=== PATIENT | male | born 1955 | race Caucasian/White ===

== ENCOUNTER 2020-09-24 09:02 | Outpatient (REF) | payer OTHER, SELFPAY ==
[2020-09-24 12:08] LABS: Alanine Aminotransferase 47 U/L (0-40); Albumin Level 4.6 g/dL (3.5-5.0); Alkaline Phosphatase 38 U/L (39-117); Anion Gap 18 (12-20); Aspartate Amino Transferase 44 U/L (5-37); Blood Urea Nitrogen 16 mg/dL (9-16); Calcium 9.6 mg/dL (8.4-10.2); Carbon Dioxide 27 mmol/L (22-29); Chloride 88 mmol/L (96-108); Cholesterol 181 mg/dL; Estimated Glomerular Filt Rate > 60; Glucose Fasting 191 mg/dL (60-99); HDL Cholesterol 48 mg/dL; LDL Cholesterol Calculated 93 mg/dl; Potassium 3.9 mmol/L (3.3-5.1); Sodium 129 mmol/L (135-145); Total Protein 7.2 g/dL (6.5-8.0); Triglycerides 204 mg/dL
[2020-09-24 12:59] LABS: Estimated Average Glucose 177 mg/dL; Hemoglobin A1C 227.3193 umol/L; Hemoglobin A1c % 7.8 %
== END 2020-09-24 09:03 | disposition home or self-care (01) ==
LOC: HO.HMGCLDS 09:02
PROVIDERS: PCP Nurse Practitioner Family; Visit Provider Nurse Practitioner Family
DX: E11.9 Type 2 diabetes mellitus without complications (principal)
CPT/HCPCS: 36415; 80053; 80061; 83036

== ENCOUNTER 2022-09-01 12:48 | Outpatient (REF) | payer OTHER, SELFPAY ==
[2022-09-01 14:05] LABS: MANUAL DIFF FLAG NO
[2022-09-01 14:11] LABS: Basophils Percent Auto 0.6 % (0-2); Eosinophils Absolute Auto 0.1 X10*3/uL (0.0-0.4); Eosinophils Percent Auto 1.1 % (0-4); Hematocrit 42.9 % (42.0-52.0); Hemoglobin 14.7 g/dl (14.0-18.0); Imm Gran Abs Auto 0.06 X10*3/uL (0.00-0.03); Imm Gran Pct Auto 0.9 % (0.0-0.4); Lymphocytes Absolute Auto 1.2 X10*3/uL (1.2-4.9); Lymphocytes Percent Auto 17.3 % (20-40); Mean Corpuscular HGB Conc 34.3 g/dl (31.0-36.0); Mean Corpuscular Hemoglobin 31.5 pg (27.0-33.0); Mean Corpuscular Volume 92.1 fL (80.0-98.0); Mean Platelet Volume 10.3 fL (9.4-12.4); Monocytes Absolute Auto 0.8 X10*3/uL (0.1-1.2); Monocytes Percent Auto 12.2 % (2-11); Neutrophils Absolute Auto 4.5 x10*3/uL (2.0-8.3); Neutrophils Percent Auto 67.9 % (45-73); Platelet Count 233 X10*3/uL (160-400); Red Blood Count 4.66 X10*6/uL (4.60-5.80); Red Cell Distribution Width 11.9 % (11.0-16.0); White Blood Count 6.6 X10*3/uL (4.8-10.8)
[2022-09-01 14:39] LABS: Alanine Aminotransferase 47 U/L (0-40); Albumin Level 4.5 g/dL (3.5-5.0); Alkaline Phosphatase 58 U/L (39-117); Anion Gap 18 (12-20); Aspartate Amino Transferase 70 U/L (5-37); Bilirubin Total 1.2 mg/dL (0.0-1.0); Blood Urea Nitrogen 17 mg/dL (9-16); Calcium 10.3 mg/dL (8.4-10.2); Carbon Dioxide 27 mmol/L (22-29); Chloride 101 mmol/L (96-108); Cholesterol 162 mg/dL; Estimated Glomerular Filt Rate > 60; Glucose Fasting 249 mg/dL (60-99); HDL Cholesterol 53 mg/dL; LDL Cholesterol Calculated 72 mg/dl; Potassium 4.9 mmol/L (3.3-5.1); Sodium 141 mmol/L (135-145); Total Protein 7.6 g/dL (6.5-8.0); Triglycerides 186 mg/dL
[2022-09-01 14:55] LABS: TSH reflex Free T4 1.17 uIU/mL (0.32-4.0)
== END 2022-09-01 12:49 | disposition home or self-care (01) ==
LOC: HO.HMGCLDS 12:48
PROVIDERS: PCP Nurse Practitioner Family; Visit Provider Nurse Practitioner Family
DX: E11.9 Type 2 diabetes mellitus without complications (principal)
CPT/HCPCS: 36415; 80053; 80061; 84443; 85025

== ENCOUNTER 2023-03-02 08:48 | Outpatient (REF) | payer OTHER, SELFPAY ==
[2023-03-02 11:32] LABS: MANUAL DIFF FLAG NO
[2023-03-02 11:34] LABS: Appearance Urine Clear; Color Urine Yellow; Glucose Urine UA Negative (Negative); Leukocyte Esterase Urine Negative (Negative); Nitrite Urine Negative (Negative); PH 5.5 (5.0-9.0); Specific Gravity - Urine 1.015 (1.005-1.025); UMIC TRIGGER UACC YES; Urine Blood Negative (Negative); Urine Ketones Trace mg/dL (Negative); Urine Protein 30 (1+) mg/dL (Neg-Trace)
[2023-03-02 11:37] LABS: Bacteria Urine None Seen (None Seen); Hyaline Casts Urine 0-2 /LPF (0-2); RBC Urine 0-2 /HPF (0-2); Squamous Epithelial Cell Urine 0-2 /HPF (0-2); WBC Urine 0-5 /HPF (0-5)
[2023-03-02 11:47] LABS: Basophils Absolute Auto 0.1 X10*3/uL (0.0-0.2); Basophils Percent Auto 0.8 % (0-2); Eosinophils Absolute Auto 0.1 X10*3/uL (0.0-0.4); Eosinophils Percent Auto 2.3 % (0-4); Hemoglobin 14.2 g/dl (14.0-18.0); Imm Gran Abs Auto 0.03 X10*3/uL (0.00-0.03); Imm Gran Pct Auto 0.5 % (0.0-0.4); Lymphocytes Absolute Auto 1.2 X10*3/uL (1.2-4.9); Lymphocytes Percent Auto 19.9 % (20-40); Mean Corpuscular HGB Conc 33.8 g/dl (31.0-36.0); Mean Corpuscular Hemoglobin 31.5 pg (27.0-33.0); Mean Corpuscular Volume 93.1 fL (80.0-98.0); Mean Platelet Volume 11.1 fL (9.4-12.4); Monocytes Absolute Auto 0.7 X10*3/uL (0.1-1.2); Monocytes Percent Auto 11.8 % (2-11); Neutrophils Absolute Auto 3.9 x10*3/uL (2.0-8.3); Neutrophils Percent Auto 64.7 % (45-73); Platelet Count 155 X10*3/uL (160-400); Red Blood Count 4.51 X10*6/uL (4.60-5.80)
[2023-03-02 12:15] LABS: Estimated Average Glucose 137 mg/dL; Hemoglobin A1c % 6.4 %
[2023-03-02 12:18] LABS: Creatinine Urine 105.81 mg/dL; Microalbum/Creatinine Ratio Ur 123.8 ug/mg cr
[2023-03-02 12:34] LABS: Alanine Aminotransferase 25 U/L (0-40); Albumin Level 4.6 g/dL (3.5-5.0); Alkaline Phosphatase 35 U/L (39-117); Anion Gap 15 (12-20); Aspartate Amino Transferase 26 U/L (5-37); Bilirubin Total 1.1 mg/dL (0.0-1.0); Blood Urea Nitrogen 22 mg/dL (9-16); Calcium 10.9 mg/dL (8.4-10.2); Carbon Dioxide 23 mmol/L (22-29); Chloride 106 mmol/L (96-108); Cholesterol 148 mg/dL; Estimated Glomerular Filt Rate > 60; Glucose Fasting 164 mg/dL (60-99); HDL Cholesterol 46 mg/dL; Iron 139 mcg/dL (45-160); LDL Cholesterol Calculated 70 mg/dl; Percent Iron Saturation 41 % (15-50); Potassium 4.2 mmol/L (3.3-5.1); Sodium 140 mmol/L (135-145); Total Iron Binding Capacity 336 mcg/dL (228-428); Total Protein 7.7 g/dL (6.5-8.0); Triglycerides 160 mg/dL; Unsaturated Iron Binding 197 ug/dL
[2023-03-02 12:39] LABS: Ferritin 312 ng/mL (20-250); TSH reflex Free T4 1.38 uIU/mL (0.32-4.0)
[2023-03-02 12:41] LABS: Prostate Specific Antigen Scr 0.18 ng/mL (<0.05-4.0)
== END 2023-03-02 08:49 | disposition home or self-care (01) ==
LOC: HO.HMGCLDS 08:48
PROVIDERS: PCP Nurse Practitioner Family; Visit Provider Nurse Practitioner Family
DX: Z12.5 Encounter for screening for malignant neoplasm of prostate (principal); E11.9 Type 2 diabetes mellitus without complications; R79.89 Other specified abnormal findings of blood chemistry
CPT/HCPCS: 36415; 80053; 80061; 81001; 82043; 82728; 83036; 83540; 84153; 84443; 85025

== ENCOUNTER 2023-03-06 15:42 | Outpatient (AMB) | payer OTHER, SELFPAY ==
[2023-03-06 15:48] VITALS: BP 120/78; PULSE 80; O2SAT 97; BMI 28.2
--- NOTE | 2023-03-06 15:48 | MHC.PC.OV ---
Vital Signs 03/06/23 15:48 Height 5 ft 11 in Weight 202 lb 4 oz BMI 28.2 BP 120/78 Blood Pressure Location Rt brachial Position Sitting Pulse 80 Pulse Source Pulse Oximeter Pulse Oximetry (%) 97 Oxygen Delivery Method Room Air Intake Visit Reasons: 3 Month follow up Allergies No Known Allergies Allergy (Unverified 03/06/23 17:09) Medication List - Last Reconciled 03/06/23 by RITESH Jose amlodipine 10 mg PO DAILY aspirin (Edgar Low Dose Aspirin) 81 mg PO DAILY atorvastatin 40 mg PO DAILY clonidine HCl 0.2 mg PO BEDTIME glipizide ER 5 mg PO DAILY hydralazine 25 mg PO BID hydrochlorothiazide 25 mg PO DAILY lisinopril 40 mg PO DAILY metformin 1,000 mg PO BID propranolol ER 120 mg PO DAILY Tobacco use date assessed: 03/06/23 Fall risk assessment: No Falls in past year Last assessed Fall Risk: 03/06/23 Dental Screening Dental Screen Date: 03/06/23 Did you have a dental visit in the last 12 months?: Yes Did you have a dental problem in the last 6 months where you did not have access to dental care?: No Was dental information given to patient?: Patient has dentist HPI 3 Month follow up HPI Details Pt is a diabetic, on an ANITHA and a statin. Last A1C was 6.4, microalbumin is up to date. Denies polyuria, polydipsia, and neuropathy. Pt denies any signs and symptoms of hypoglycemia and does know how to correct it. Eye exam is up to date. Pt's calcium was elevated, parathyroid hormone and ionized calcium have been ordered. Refuses colon screens. Elevated ferritin, though iron WNL: donates blood, hasn't in a while, plan to do so in the near future. NOTE: i drink wine everyday . [facility] Medical History Colonoscopy refused Social History Housing: House Patient Tobacco Use Status: Former Tobacco user Quit Date: quit 25 years ago e-Cigarette/Vaping Use: Never Used Second Hand Smoke Exposure: No Current occupational status: employed Current occupation: [id number] Current occupational exposures/hazards: No Cognitive needs: No Hearing needs: No Vision needs: No Questionnaire Thrive Questionnaire Date Thrive assessed: 08/23/22 ROBYN-7 AMB Questionnaire ROBYN-7 Date ROBYN - 7 assessed: 08/23/22 Source: Developed by Drs. Joesph Gray, Laxmi Young, Teddy Reyes and colleagues, with an educational ning from [email or web address]. Review of Systems Const Reports as per HPI Physical exam (Primary Care) Vital Signs: Last Vital Signs Pulse 80 03/06/23 15:48 BP 120/78 03/06/23 15:48 Pulse Ox 97 03/06/23 15:48 Oxygen Delivery Method Room Air 03/06/23 15:48 BMI result Body Mass Index 28.2 Tobacco/Smoking Status: Tobacco use Status Tobacco use date assessed 03/06/23 03/06/23 15:56 Patient Tobacco Use Status Former Tobacco user 03/06/23 15:56 e-Cigarette/Vaping Use Never Used 03/06/23 15:56 Thrive Assessment: Date of Thrive Assessment Date Thrive assessed 08/23/22 03/06/23 15:56 Const General: cooperative Orientation/consciousness: patient oriented x3 Resp Effort & Inspection: normal respiratory effort Auscultation: clear to auscultation bilaterally Cardio Rate: regular rate Rhythm: regular rhythm Heart sounds: S1 normal heart sound present, S2 normal heart sound present and Murmur heart sound present systolic Neuro General: patient oriented x3 Extrem Other: bilat feet: + sensation with use of monofilament, feet intact Psych Appearance: grossly normal Mental Status: mental status grossly normal Speech and movement: Normal speech and movement present Affect: normal affect Attitude: cooperative Thought process: Normal thought process present Thought content: Normal thought content present Insight: Good insight present (Psych) Judgement: Good judgement present (Psych) Assessment and Plan Assessment & Plan (1) Elevated ferritin: Code(s): R79.89 - Other specified abnormal findings of blood chemistry (2) Serum calcium elevated: Code(s): E83.52 - Hypercalcemia (3) Diabetes mellitus: Code(s): E11.9 - Type 2 diabetes mellitus without complications Plan The patient agreed to the use of a medical insurance claims specialist for this encounter. Scribed for RITESH Espinoza by Mellisa Moctezuma medical insurance claims specialist, on 03/06/2023 at 16:00 EST. Coding Level of Care Code Est Pt Level 3 (69358) Diagnoses Elevated ferritin R79.89 Serum calcium elevated E83.52 Diabetes mellitus E11.9
== END 2023-03-06 16:28 | disposition home or self-care (01) ==
PROVIDERS: Visit Provider Nurse Practitioner Family
DX: R79.89 Other specified abnormal findings of blood chemistry (principal); E83.52 Hypercalcemia; E11.9 Type 2 diabetes mellitus without complications
CPT/HCPCS: 99213

== ENCOUNTER 2023-09-25 09:04 | Outpatient (REF) | payer BC, SELFPAY ==
[2023-09-25 11:38] LABS: Appearance Urine Cloudy; Color Urine Dark Yellow; Glucose Urine UA 100 mg/dL (Negative); Leukocyte Esterase Urine Trace (Negative); Nitrite Urine Negative (Negative); PH 5.5 (5.0-9.0); Specific Gravity - Urine 1.025 (1.005-1.025); UMIC TRIGGER UACC YES; Urine Blood Negative (Negative); Urine Ketones Trace mg/dL (Negative); Urine Protein 300 (3+) mg/dL (Neg-Trace)
[2023-09-25 11:40] LABS: MANUAL DIFF FLAG NO
[2023-09-25 11:54] LABS: Basophils Absolute Auto 0.1 X10*3/uL (0.0-0.2); Basophils Percent Auto 0.6 % (0-2); Eosinophils Absolute Auto 0.2 X10*3/uL (0.0-0.4); Eosinophils Percent Auto 1.9 % (0-4); Hematocrit 46.3 % (42.0-52.0); Hemoglobin 15.7 g/dl (14.0-18.0); Imm Gran Abs Auto 0.04 X10*3/uL (0.00-0.03); Imm Gran Pct Auto 0.5 % (0.0-0.4); Lymphocytes Absolute Auto 1.3 X10*3/uL (1.2-4.9); Lymphocytes Percent Auto 15.9 % (20-40); Mean Corpuscular HGB Conc 33.9 g/dl (31.0-36.0); Mean Corpuscular Hemoglobin 30.4 pg (27.0-33.0); Mean Corpuscular Volume 89.6 fL (80.0-98.0); Mean Platelet Volume 10.4 fL (9.4-12.4); Monocytes Percent Auto 11.7 % (2-11); Neutrophils Absolute Auto 5.7 x10*3/uL (2.0-8.3); Neutrophils Percent Auto 69.4 % (45-73); Platelet Count 205 X10*3/uL (160-400); Red Blood Count 5.17 X10*6/uL (4.60-5.80); Red Cell Distribution Width 13.2 % (11.0-16.0); White Blood Count 8.2 X10*3/uL (4.8-10.8)
[2023-09-25 12:05] LABS: Bacteria Urine None Seen (None Seen); Estimated Average Glucose 131 mg/dL; Hemoglobin A1c % 6.2 % (<6.0); Hyaline Casts Urine >20 /LPF (0-2); RBC Urine 0-2 /HPF (0-2); UACC Culture Trigger YES
[2023-09-25 12:26] LABS: Alanine Aminotransferase 20 U/L (0-40); Albumin Level 4.8 g/dL (3.5-5.0); Alkaline Phosphatase 43 U/L (39-117); Anion Gap 15 (12-20); Aspartate Amino Transferase 21 U/L (5-37); Bilirubin Total 1.2 mg/dL (0.0-1.0); Blood Urea Nitrogen 21 mg/dL (9-16); Calcium 10.6 mg/dL (8.4-10.2); Carbon Dioxide 24 mmol/L (22-29); Chloride 103 mmol/L (96-108); Cholesterol 194 mg/dL (<200); Estimated Glomerular Filt Rate > 60; Glucose Fasting 221 mg/dL (60-99); HDL Cholesterol 48 mg/dL (>40); LDL Cholesterol Calculated 111 mg/dL (<100); Potassium 4.1 mmol/L (3.3-5.1); Sodium 138 mmol/L (135-145); TSH reflex Free T4 2.32 uIU/mL (0.32-4.0); Total Protein 8.3 g/dL (6.5-8.0); Triglycerides 177 mg/dL (<150)
[2023-09-25 13:12] LABS: Microalbum/Creatinine Ratio Ur 633.4 ug/mg cr (<30); Microalbumin Urine > 2000.0 mg/L
== END 2023-09-25 09:05 | disposition home or self-care (01) ==
LOC: HO.HMGCLDS 09:04
PROVIDERS: PCP Nurse Practitioner Family; Visit Provider Nurse Practitioner Family
DX: Z12.5 Encounter for screening for malignant neoplasm of prostate (principal); I10 Essential (primary) hypertension; E11.9 Type 2 diabetes mellitus without complications; R82.90 Unspecified abnormal findings in urine
CPT/HCPCS: 36415; 80053; 80061; 81001; 82043; 82570; 83036; 84153; 84443; 85025; 87086

== ENCOUNTER 2023-10-12 13:38 | Outpatient (AMB) | payer BC, SELFPAY ==
[2023-10-12 13:50] VITALS: BP 124/70; PULSE 69; O2SAT 96; BMI 27.9
--- NOTE | 2023-10-12 13:50 | HO.NEPHOV_ITS ---
HPI HPI Comments History of Present Illness Details I had the privilege of seeing Prudence in consultation for proteinuria. He is diabetic and hypertensive. His blood pressure control was suboptimal needing increase in dose and number of medications. Recently he has been started on clonidine and ever since his blood pressure has been at goal. His diabetes was not under control with a hemoglobin A1c of 9.2 which he worked hard on and is currently under 7. He denies retinopathy, neuropathy but has nephropathy. He does not have any coronary artery disease, congestive heart failure, CVA, renal artery stenosis, peripheral arterial disease, skin rashes, carotid stenosis, photosensitivity, joint swellings, epistaxis, hematuria, renal stones. His proteinuria has been getting worse. He denies taking excessive nonsteroidal anti-inflammatories. He claims to be compliant with his medications. PFSH Medical History Colonoscopy refused Social History Housing: House Patient Tobacco Use Status: Former Tobacco user Quit Date: quit 25 years ago e-Cigarette/Vaping Use: Never Used Second Hand Smoke Exposure: No Current occupational status: employed Current occupation: [id number] Current occupational exposures/hazards: No Cognitive needs: No Hearing needs: No Vision needs: No Vital Signs 10/12/23 13:50 Height 5 ft 11 in Weight 200 lb 2 oz BMI 27.9 BP 124/70 Blood Pressure Location Lt brachial Position Sitting Pulse 69 Pulse Source Pulse Oximeter Pulse Oximetry (%) 96 Oxygen Delivery Method Room Air Physical Exam Vital Signs: Last Vital Signs Pulse 69 10/12/23 13:50 BP 124/70 10/12/23 13:50 Pulse Ox 96 10/12/23 13:50 Oxygen Delivery Method Room Air 10/12/23 13:50 BMI result Body Mass Index 27.9 Const General: comfortable and no acute distress Orientation/consciousness: patient oriented x3 HEENT Head: Yes normocephalic Mouth: Normal oral and palatal mucosa present Eyes EOM: EOMs intact bilaterally Neck Neck: Yes supple Resp Auscultation: clear to auscultation bilaterally Cardio Jugular venous distension: no JVD Rate: regular rate GI Palpation (GI): Soft to palpation Auscultation: normal bowel sounds General: Yes no CVA tenderness Back/Spine/Pelvis Back: no CVA tenderness Skin General skin exam: no rashes or lesions noted Neuro General: patient oriented x3 and moves all extremities Extrem General: Yes no pedal edema Assessment & Plan Assessment & Plan (1) Proteinuria: Code(s): R80.9 - Proteinuria, unspecified Qualifiers: Proteinuria type: other Qualified Code(s): R80.8 - Other proteinuria (2) HTN (hypertension): Code(s): I10 - Essential (primary) hypertension Qualifiers: Hypertension type: primary hypertension Qualified Code(s): I10 - Essential (primary) hypertension Plan 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 His blood pressure is currently at goal. His hemoglobin A1c is under 7. He does not have any retinopathy or neuropathy. I ordered further workup including imaging studies. I also ordered 24 hour urine collection for protein. He has no family history of Fabry's disease. He has no coronary artery disease or symptoms suggestive of small fiber neuropathy either. He most likely will need renal biopsy. He possibly is a candidate for Jardiance or Farxiga. He should avoid nonsteroidal anti-inflammatories and maintain good hydration. I did not make any medication changes today. More than 50% of time spent discuss ing all these. Answered all his questions. Follow-up appointment given. Orders: Orders Hepatitis B Core Antibody Today I10 - Essential (primary) hypertension, R80.9 - Proteinuria, unspecified Hepatitis B Surface Antigen Today I10 - Essential (primary) hypertension, R80.9 - Proteinuria, unspecified RACIEL Reflex Titer and Pattern Today I10 - Essential (primary) hypertension, R80.9 - Proteinuria, unspecified Anti DNA DS Antibody Today I10 - Essential (primary) hypertension, R80.9 - Proteinuria, unspecified Myeloperoxidase Antibody Today I10 - Essential (primary) hypertension, R80.9 - Proteinuria, unspecified Anti Glomerular Basement Memb Today I10 - Essential (primary) hypertension, R80.9 - Proteinuria, unspecified Protein Electrophoresis, Serum Today I10 - Essential (primary) hypertension, R80.9 - Proteinuria, unspecified Complement C3 Today I10 - Essential (primary) hypertension, R80.9 - Proteinuria, unspecified Phospholipase A2 Receptor Pnl Today I10 - Essential (primary) hypertension, R80.9 - Proteinuria, unspecified Protein, 24 Hr Urine Group Today I10 - Essential (primary) hypertension, R80.9 - Proteinuria, unspecified Prothrombin Time INR Today I10 - Essential (primary) hypertension, R80.9 - Proteinuria, unspecified Proteinase 3 PR3 Antibodies Today I10 - Essential (primary) hypertension, R80.9 - Proteinuria, unspecified Complement C4 Today I10 - Essential (primary) hypertension, R80.9 - Proteinuria, unspecified Complete Blood Count Auto Diff Today I10 - Essential (primary) hypertension, R80.9 - Proteinuria, unspecified US renal BI Today I10 - Essential (primary) hypertension, R80.9 - Proteinuria, unspecified Coding Level of Care Code New Pt Level 4 (09330) Diagnoses Other proteinuria R80.8 Proteinuria type: other Primary hypertension I10 Hypertension type: primary hypertension Results Reviewed Nephrology Results: Hgb 15.7 g/dl (14.0-18.0) 09/25/23 WBC 8.2 X10*3/uL (4.8-10.8) 09/25/23 Plt Count 205 X10*3/uL (160-400) 09/25/23 Sodium 138 mmol/L (135-145) 09/25/23 Potassium 4.1 mmol/L (3.3-5.1) 09/25/23 Chloride 103 mmol/L (96-108) 09/25/23 Carbon Dioxide 24 mmol/L (22-29) 09/25/23 BUN 21 mg/dL (9-16) H 09/25/23 Creatinine 0.86 mg/dL (0.5-1.4) 09/25/23 Calcium 10.6 mg/dL (8.4-10.2) H 09/25/23 Urine Protein 300 (3+) mg/dL (Neg-Trace) H 09/25/23 Urine Creatinine 315.74 mg/dL 09/25/23
== END 2023-10-12 14:17 | disposition home or self-care (01) ==
PROVIDERS: PCP Nurse Practitioner Family; Visit Provider Internal Medicine Nephrology
DX: R80.8 Other proteinuria (principal); I10 Essential (primary) hypertension
CPT/HCPCS: 99204

== ENCOUNTER → 2023-10-12 13:38 | Outpatient (BNVA) | payer BC, SELFPAY | PROVIDERS: PCP Nurse Practitioner Family; Visit Provider Internal Medicine Nephrology ==

== ENCOUNTER 2023-11-09 10:13 | Outpatient (REF) | payer BC, SELFPAY ==
[2023-11-09 13:19] LABS: MANUAL DIFF FLAG NO
[2023-11-09 13:45] LABS: Basophils Percent Auto 0.6 % (0-2); Eosinophils Absolute Auto 0.1 X10*3/uL (0.0-0.4); Eosinophils Percent Auto 1.8 % (0-4); Hematocrit 43.5 % (42.0-52.0); Hemoglobin 14.7 g/dl (14.0-18.0); Imm Gran Abs Auto 0.02 X10*3/uL (0.00-0.03); Imm Gran Pct Auto 0.3 % (0.0-0.4); Lymphocytes Absolute Auto 0.8 X10*3/uL (1.2-4.9); Lymphocytes Percent Auto 12.1 % (20-40); Mean Corpuscular HGB Conc 33.8 g/dl (31.0-36.0); Mean Corpuscular Volume 91.8 fL (80.0-98.0); Mean Platelet Volume 10.4 fL (9.4-12.4); Monocytes Absolute Auto 0.6 X10*3/uL (0.1-1.2); Monocytes Percent Auto 8.5 % (2-11); Neutrophils Absolute Auto 5.1 x10*3/uL (2.0-8.3); Neutrophils Percent Auto 76.7 % (45-73); Platelet Count 177 X10*3/uL (160-400); Red Blood Count 4.74 X10*6/uL (4.60-5.80); Red Cell Distribution Width 13.2 % (11.0-16.0); White Blood Count 6.7 X10*3/uL (4.8-10.8)
[2023-11-09 13:50] LABS: INTERNATIONAL NORM RATIO 0.9 (0.9-1.1); Prothrombin Time 11.4 SEC (11.1-13.3)
[2023-11-10 04:27] LABS: HBc Num1 0.06 S/CO (0.00-0.79); Hepatitis B Core Antibody Nonreactive (Nonreactive); Hepatitis B Surface Antigen Negative (Negative)
[2023-11-13 08:23] LABS: Anti DNA DS Antibody <1 IU/mL; Anti Glomerular Basement Memb <1.0 AI; Myeloperoxidase Antibody <1.0 AI; Proteinase 3 PR3 Antibodies <1.0 AI
[2023-11-13 12:53] LABS: Anti Nuclear Antibody Screen NEGATIVE (NEGATIVE)
[2023-11-13 16:49] LABS: Prot Elec - Albumin 4.7 g/dL (3.8-4.8); Prot Elec - Alpha1 0.3 g/dL (0.2-0.3); Prot Elec - Alpha2 0.8 g/dL (0.5-0.9); Prot Elec - Beta 1 0.6 g/dL (0.4-0.6); Prot Elec - Beta 2 0.5 g/dL (0.2-0.5); Prot Elec - Gamma 0.9 g/dL (0.8-1.7); Prot Elec - Total Protein 7.7 g/dL (6.1-8.1)
[2023-11-14 11:59] LABS: Complement C3 148 mg/dL (82-185)
[2023-11-20 17:08] LABS: Phospholipase A2 IgG ELISA <4 RU/mL; Phospholipase A2 IgG IFA NEGATIVE (NEGATIVE)
== END 2023-11-09 10:14 | disposition home or self-care (01) ==
LOC: HO.HMGCLDS 10:13
PROVIDERS: PCP Nurse Practitioner Family; Visit Provider Internal Medicine Nephrology
DX: I10 Essential (primary) hypertension (principal); R80.8 Other proteinuria
CPT/HCPCS: 36415; 83520; 84165; 85025; 85610; 86021; 86038; 86160; 86225; 86255; 86704; 87340

== ENCOUNTER 2023-11-09 14:01 | Outpatient (AMB) | payer BC, SELFPAY ==
--- NOTE | 2023-11-09 14:05 | HO.NEPHOV_ITS ---
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 He is diabetic and hypertensive. His blood pressure control was suboptimal needing increase in dose and number of medications. Recently he has been started on clonidine and ever since his blood pressure has been at goal. His diabetes was not under control with a hemoglobin A1c of 9.2 which he worked hard on and is currently under 7. He denies retinopathy, neuropathy but has nephropathy. He does not have any coronary artery disease, congestive heart failure, CVA, renal artery stenosis, peripheral arterial disease, skin rashes, carotid stenosis, photosensitivity, joint swellings, epistaxis, hematuria, renal stones. His proteinuria had been getting worse. He denies taking excessive nonsteroidal anti-inflammatories. He claims to be compliant with his medications. PFSH Medical History Colonoscopy refused Social History Housing: House Patient Tobacco Use Status: Former Tobacco user Quit Date: quit 25 years ago e-Cigarette/Vaping Use: Never Used Second Hand Smoke Exposure: No Current occupational status: employed Current occupation: [id number] Current occupational exposures/hazards: No Cognitive needs: No Hearing needs: No Vision needs: No Physical Exam Vital Signs: Last Vital Signs Pulse 66 11/09/23 14:06 BP 130/74 11/09/23 14:06 Pulse Ox 98 11/09/23 14:06 Oxygen Delivery Method Room Air 11/09/23 14:06 BMI result Body Mass Index 27.8 Const General: comfortable and no acute distress Orientation/consciousness: patient oriented x3 HEENT Head: Yes normocephalic Mouth: Normal oral and palatal mucosa present Eyes EOM: EOMs intact bilaterally Neck Neck: Yes supple Resp Auscultation: clear to auscultation bilaterally Cardio Jugular venous distension: no JVD Rate: regular rate GI Palpation (GI): Soft to palpation Auscultation: normal bowel sounds General: Yes no CVA tenderness Back/Spine/Pelvis Back: no CVA tenderness Skin General skin exam: no rashes or lesions noted Neuro General: patient oriented x3 and moves all extremities Extrem General: Yes no pedal edema Results Reviewed Nephrology Results: Hgb 14.7 g/dl (14.0-18.0) 11/09/23 WBC 6.7 X10*3/uL (4.8-10.8) 11/09/23 Plt Count 177 X10*3/uL (160-400) 11/09/23 Sodium 138 mmol/L (135-145) 09/25/23 Potassium 4.1 mmol/L (3.3-5.1) 09/25/23 Chloride 103 mmol/L (96-108) 09/25/23 Carbon Dioxide 24 mmol/L (22-29) 09/25/23 BUN 21 mg/dL (9-16) H 09/25/23 Creatinine 0.86 mg/dL (0.5-1.4) 09/25/23 Calcium 10.6 mg/dL (8.4-10.2) H 09/25/23 Urine Protein 300 (3+) mg/dL (Neg-Trace) H 09/25/23 Urine Creatinine 315.74 mg/dL 09/25/23 Assessment & Plan Assessment & Plan (1) Proteinuria: Code(s): R80.9 - Proteinuria, unspecified Category: Medical Qualifiers: Proteinuria type: other Qualified Code(s): R80.8 - Other proteinuria (2) HTN (hypertension): Code(s): I10 - Essential (primary) hypertension Category: Medical Qualifiers: Hypertension type: primary hypertension Qualified Code(s): I10 - Essential (primary) hypertension Plan 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 His blood pressure is currently at goal. His hemoglobin A1c is under 7. He does not have any retinopathy or neuropathy. I ordered further workup including imaging studies. I also ordered 24 hour urine collection for protein. He has no family history of Fabry's disease. He has no coronary artery disease or symptoms suggestive of small fiber neuropathy either. He most likely will need renal biopsy. ( work up including 24 hour collection pending). He possibly is a candidate for Jardiance or Farxiga. He should avoid nonsteroidal anti- inflammatories and maintain good hydration. I did not make any medication changes today. I ordered Renal USS and Doppler of renal arteries. Patient prefers not to have renal biopsy if he can avoid ( doesnt like needles) Answered all his questions. Follow-up appointment given Orders: Orders US renal doppler Today I10 - Essential (primary) hypertension, R80.8 - Other proteinuria US renal BI Today I10 - Essential (primary) hypertension, R80.8 - Other proteinuria
[2023-11-09 14:06] VITALS: BP 130/74; PULSE 66; O2SAT 98; BMI 27.8
== END 2023-11-09 14:27 | disposition home or self-care (01) ==
PROVIDERS: PCP Nurse Practitioner Family; Visit Provider Internal Medicine Nephrology
DX: R80.8 Other proteinuria (principal); I10 Essential (primary) hypertension
CPT/HCPCS: 99214

== ENCOUNTER 2023-12-27 10:08 | Outpatient (AMB) | payer BC, SELFPAY ==
--- NOTE | 2023-12-27 10:11 | MHC.PC.OV ---
Vital Signs 12/27/23 10:14 Height 5 ft 11 in Weight 199 lb BMI 27.8 BP 110/70 Blood Pressure Location Rt brachial Position Sitting Pulse 87 Pulse Source Pulse Oximeter Pulse Oximetry (%) 97 Oxygen Delivery Method Room Air Intake Visit Reasons: medication follow up Intake Note: Patient here for diabetes f/u. Allergies No Known Allergies Allergy (Verified 12/27/23 10:35) Medication List - Last Reconciled 12/27/23 by RITESH Jose amlodipine 10 mg PO DAILY aspirin (Edgar Low Dose Aspirin) 81 mg PO DAILY atorvastatin 40 mg PO DAILY clonidine HCl 0.2 mg PO BEDTIME glipizide ER 5 mg PO DAILY hydralazine 25 mg PO BID hydrochlorothiazide 25 mg PO DAILY lisinopril 40 mg PO DAILY metformin 1,000 mg PO BID propranolol ER 120 mg PO DAILY Tobacco use date assessed: 12/27/23 Fall risk assessment: No Falls in past year Last assessed Fall Risk: 12/27/23 Dental Screening Dental Screen Date: 12/27/23 Did you have a dental visit in the last 12 months?: No Did you have a dental problem in the last 6 months where you did not have access to dental care?: No Was dental information given to patient?: Patient has dentist HPI medication follow up HPI Details Pt is a diabetic, on an ANITHA and a statin. A1C in office today is 6.7. Microalbumin is up to date. Denies polyuria, polydipsia, and neuropathy. Pt denies any signs and symptoms of hypoglycemia and does know how to correct it. Pt is following up with nephrology. He has adjusted his diet, limiting carbs. PFSH Medical History Colonoscopy refused Social History Housing: House Patient Tobacco Use Status: Former Tobacco user e-Cigarette/Vaping Use: Never Used Second Hand Smoke Exposure: No Current occupational status: employed Current occupation: [id number] Current occupational exposures/hazards: No Cognitive needs: No Hearing needs: No Vision needs: No Questionnaire PHQ-9 Over the last 2 weeks, how often have you been bothered by any of the following problems? [id number] - PHQ-9 Billing: Patient declined-do not bill Source: Developed by Drs. Joesph Gray, Teddy Hernandez and colleagues, with an educational ning from [employer]. Thrive Questionnaire Date Thrive assessed: 12/27/23 What is your living situation today?: I choose not to answer this question Within the past 12 months, did the food you bought not last and you didn't have the money to get more?: I choose not to answer this question Within the past 12 months, did you worry whether your food would run out before you got money to buy more?: I choose not to answer this question Do you have trouble paying for medicines?: I choose not to answer this question Do you have trouble getting transportation to medical appointments?: I choose not to answer this question Do you have trouble paying your heating and electricity bill?: I choose not to answer this question Do you have trouble taking care of your child, family member or friend?: I choose not to answer this question Do you have trouble with day-to-day activities such as bathing, preparing meals, shopping, managing finances, etc.?: I choose not to answer this question Are you currently unemployed and looking for a job?: I choose not to answer this question Are you interested in more education?: I choose not to answer this question Currently or been in a relationship where the following occur: I choose not to answer this question THRIVE Score: 0 AUDIT C Alcohol Use Questionnaire (AUDIT-C) 1. How often do you have a drink containing alcohol?: 4 or more times a week 2. How many drinks containing alcohol do you have on a typical day when you are drinking?: 1 or 2 3. How often do you have six or more drinks on one occasion?: Never Total Score: 4 Score Reviewed/Action Taken: No ROBYN-7 AMB Questionnaire ROBYN-7 Date ROBYN - 7 assessed: 12/27/23 Source: Developed by Drs. Joesph Gray, Teddy Hernandez and colleagues, with an educational ning from [employer]. ROBYN-7 Assessment Billing ROBYN-7 Assessment Tool: pt declined-do not bill Review of Systems Const Reports as per HPI Physical exam (Primary Care) Vital Signs: Last Vital Signs Pulse 87 12/27/23 10:14 BP 110/70 12/27/23 10:14 Pulse Ox 97 12/27/23 10:14 Oxygen Delivery Method Room Air 12/27/23 10:14 BMI result Body Mass Index 27.8 Tobacco/Smoking Status: Tobacco use Status Tobacco use date assessed 12/27/23 12/27/23 10:18 Patient Tobacco Use Status Former Tobacco user 12/27/23 10:12 e-Cigarette/Vaping Use Never Used 12/27/23 10:12 Thrive Assessment: Date of Thrive Assessment Date Thrive assessed 12/27/23 12/27/23 10:20 Currently or been in a relationship where the following occur: I choose not to answer this question Const General: cooperative Orientation/consciousness: patient oriented x3 Resp Effort & Inspection: normal respiratory effort Auscultation: clear to auscultation bilaterally Cardio Rate: regular rate Rhythm: regular rhythm Heart sounds: S1 normal heart sound present, S2 normal heart sound present and Murmur heart sound present systolic (faint) Neuro General: patient oriented x3 Extrem Other: bilat feet: + sensation with use of monofilament Right lower extremity: no edema Left lower extremity: no edema Psych Appearance: grossly normal Mental Status: mental status grossly normal Speech and movement: Normal speech and movement present Affect: normal affect Attitude: cooperative Thought process: Normal thought process present Thought content: Normal thought content present Insight: Good insight present (Psych) Judgement: Good judgement present (Psych) Results AMB Hemoglobin A1c AMB Hemoglobin A1c 6.7 % Last Edit by CARLA Miranda on 12/27/23 10:36 Assessment and Plan Assessment & Plan (1) Systolic murmur: Code(s): R01.1 - Cardiac murmur, unspecified Plan: echo ordered (2) Diabetes: Code(s): E11.9 - Type 2 diabetes mellitus without complications Plan: continue same regime, encouraged following up with nephrology. Plan The patient agreed to the use of a medical affairs specialist for this encounter. Scribed for RITESH Espinoza by Mellisa Moctezuma medical affairs specialist, on 12/27/2023 at 10:35 EST. Orders: Orders CA echo transthoracic complete Today R01.1 - Cardiac murmur, unspecified Lipid Panel Today E11.9 - Type 2 diabetes mellitus without complications UA CC w/rflx Micro + Cult Today E11.9 - Type 2 diabetes mellitus without complications AMB Hemoglobin A1c Today E11.9 - Type 2 diabetes mellitus without complications Complete Blood Count Auto Diff Today E11.9 - Type 2 diabetes mellitus without complications TSH reflex Free T4 Today E11.9 - Type 2 diabetes mellitus without complications Comprehensive Hassell. Panel Fast Today E11.9 - Type 2 diabetes mellitus without complications Medications: New aspirin (Edgar Low Dose Aspirin) 81 mg PO DAILY 90 tabs 3RF Refilled hydrochlorothiazide 25 mg PO DAILY 90 tabs 3RF metformin 1,000 mg PO BID 180 tabs 1RF E11.9 - Type 2 diabetes mellitus without complications propranolol ER 120 mg PO DAILY 90 caps 1RF amlodipine 10 mg PO DAILY 90 tabs 1RF atorvastatin 40 mg PO DAILY 90 tabs 1RF clonidine HCl 0.2 mg PO BEDTIME 90 tabs 1RF glipizide ER 5 mg PO DAILY 90 tabs 1RF hydralazine 25 mg PO BID 180 tabs 1RF lisinopril 40 mg PO DAILY 90 tabs 1RF Coding Level of Care Code Est Pt Level 3 (41446) Diagnoses Systolic murmur R01.1 Diabetes E11.9
[2023-12-27 10:14] VITALS: BP 110/70; PULSE 87; O2SAT 97; BMI 27.8
== END 2023-12-27 10:48 | disposition home or self-care (01) ==
PROVIDERS: PCP Nurse Practitioner Family; Visit Provider Nurse Practitioner Family
DX: R01.1 Cardiac murmur, unspecified (principal); E11.9 Type 2 diabetes mellitus without complications
CPT/HCPCS: 83036; 99213

== ENCOUNTER 2024-04-22 05:00 | Outpatient (REF) | payer BC, SELFPAY ==
[2024-04-22 17:09] LABS: Creatinine, mg/dL 72.35; Protein mg/dL 7 mg/dL
[2024-04-22 18:06] LABS: Creatinine, 24Hr Urine 1.2 G/Day (1.0-2.0); Protein 24 Hr Urine < 117 mg/Day (<150); Total Volume 24 Hour Urine 1675 mL
== END 2024-04-22 05:01 | disposition home or self-care (01) ==
LOC: HO.HMGCLNP 05:00
PROVIDERS: Visit Provider Internal Medicine Nephrology
DX: R80.9 Proteinuria, unspecified (principal); I10 Essential (primary) hypertension
CPT/HCPCS: 84156

== ENCOUNTER 2024-04-25 13:38 | Outpatient (AMB) | payer BC, SELFPAY ==
[2024-04-25 13:46] VITALS: BP 124/68; PULSE 70; O2SAT 96; BMI 26.6
--- NOTE | 2024-04-25 13:46 | HO.NEPHOV_ITS ---
Vital Signs 04/25/24 13:46 Height 5 ft 11 in Weight 191 lb BMI 26.6 BP 124/68 Blood Pressure Location Rt brachial Position Sitting Pulse 70 Pulse Source Pulse Oximeter Pulse Oximetry (%) 96 Oxygen Delivery Method Room Air Intake Visit Reasons: Proteinuria/ 3 MO FU/ Conf Rope Rider Required: No Accompanied by: Self / Same As Patient Allergies No Known Allergies Allergy (Verified 04/25/24 13:48) HPI Comments Details: I had the privilege of seeing Prudence in follow up for proteinuria. He is diabetic and hypertensive. His blood pressure control was suboptimal needing increase in dose and number of medications. Recently he has been started on clonidine and ever since his blood pressure has been at goal. His diabetes was not under control with a hemoglobin A1c of 9.2 which he worked hard on and is currently under 7. He denies retinopathy, neuropathy but has nephropathy. He does not have any coronary artery disease, congestive heart failure, CVA, renal artery stenosis, peripheral arterial disease, skin rashes, carotid stenosis, photosensitivity, joint swellings, epistaxis, hematuria, renal stones. His proteinuria has normailized. He denies taking excessive nonsteroidal anti- inflammatories. He claims to be compliant with his medications. PFSH Medical History Colonoscopy refused Social History Housing: House Patient Tobacco Use Status: Former Tobacco user e-Cigarette/Vaping Use: Never Used Second Hand Smoke Exposure: No Current occupational status: employed Current occupation: [id number] Current occupational exposures/hazards: No Cognitive needs: No Hearing needs: No Vision needs: No Review of Systems Const All systems reviewed & are unremarkable except as noted in HPI and below Physical Exam Vital Signs: Last Vital Signs Pulse 70 04/25/24 13:46 BP 124/68 04/25/24 13:46 Pulse Ox 96 04/25/24 13:46 Oxygen Delivery Method Room Air 04/25/24 13:46 BMI result Body Mass Index 26.6 Const General: comfortable and no acute distress Orientation/consciousness: patient oriented x3 HEENT Head: Yes normocephalic Mouth: Normal oral and palatal mucosa present Eyes EOM: EOMs intact bilaterally Neck Neck: Yes supple Resp Auscultation: clear to auscultation bilaterally Cardio Jugular venous distension: no JVD Rate: regular rate GI Palpation (GI): Soft to palpation Auscultation: normal bowel sounds General: Yes no CVA tenderness Back/Spine/Pelvis Back: no CVA tenderness Skin General skin exam: no rashes or lesions noted Neuro General: patient oriented x3 and moves all extremities Extrem General: Yes no pedal edema Assessment & Plan Assessment & Plan (1) HTN (hypertension): Code(s): I10 - Essential (primary) hypertension Category: Medical Qualifiers: Hypertension type: primary hypertension Qualified Code(s): I10 - Essential (primary) hypertension (2) Proteinuria: Code(s): R80.9 - Proteinuria, unspecified Category: Medical Qualifiers: Proteinuria type: other Qualified Code(s): R80.8 - Other proteinuria Plan 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 His blood pressure is currently at goal. His hemoglobin A1c is under 7. He does not have any retinopathy or neuropathy. His 24 hour urine collection for protein is normal now. He has no family history of Fabry's disease. He has no coronary artery disease or symptoms suggestive of small fiber neuropathy either. He possibly is a candidate for Jardiance or Farxiga. He should avoid nonsteroidal anti-inflammatories and maintain good hydration. I did not make any medication changes today. Patient prefers not to have renal biopsy if he can avoid ( doesnt like needles) Answered all his questions. Follow-up appointment given Orders: Orders Protein Creatinine Ratio, Ur 6 Months I10 - Essential (primary) hypertension, R80.8 - Other proteinuria Creatinine 6 Months I10 - Essential (primary) hypertension, R80.8 - Other proteinuria Blood Urea Nitrogen 6 Months I10 - Essential (primary) hypertension, R80.8 - Other proteinuria Electrolytes 6 Months I10 - Essential (primary) hypertension, R80.8 - Other proteinuria Coding Level of Care Code Est Pt Level 4 (62146) Diagnoses Primary hypertension I10 Hypertension type: primary hypertension Other proteinuria R80.8 Proteinuria type: other
== END 2024-04-25 14:09 | disposition home or self-care (01) ==
PROVIDERS: PCP Nurse Practitioner Family; Visit Provider Internal Medicine Nephrology
DX: I10 Essential (primary) hypertension (principal); R80.8 Other proteinuria; E11.29 Type 2 diabetes mellitus with other diabetic kidney complication
CPT/HCPCS: 99214

== ENCOUNTER → 2024-04-25 13:38 | Outpatient (BNVA) | payer BC, SELFPAY | PROVIDERS: PCP Nurse Practitioner Family; Visit Provider Internal Medicine Nephrology ==

== ENCOUNTER 2024-04-26 09:27 | Outpatient (REF) | payer BC, SELFPAY ==
[2024-04-26 10:59] LABS: MANUAL DIFF FLAG NO
[2024-04-26 11:23] LABS: Basophils Percent Auto 0.5 % (0-2); Eosinophils Absolute Auto 0.1 X10*3/uL (0.0-0.4); Eosinophils Percent Auto 1.5 % (0-4); Hematocrit 42.4 % (42.0-52.0); Hemoglobin 14.8 g/dl (14.0-18.0); Imm Gran Abs Auto 0.03 X10*3/uL (0.00-0.03); Imm Gran Pct Auto 0.5 % (0.0-0.4); Lymphocytes Absolute Auto 0.9 X10*3/uL (1.2-4.9); Lymphocytes Percent Auto 14.7 % (20-40); Mean Corpuscular HGB Conc 34.9 g/dl (31.0-36.0); Mean Corpuscular Hemoglobin 32.2 pg (27.0-33.0); Mean Corpuscular Volume 92.4 fL (80.0-98.0); Mean Platelet Volume 10.5 fL (9.4-12.4); Monocytes Absolute Auto 0.7 X10*3/uL (0.1-1.2); Neutrophils Absolute Auto 4.5 x10*3/uL (2.0-8.3); Neutrophils Percent Auto 71.8 % (45-73); Platelet Count 187 X10*3/uL (160-400); Red Blood Count 4.59 X10*6/uL (4.60-5.80); Red Cell Distribution Width 12.2 % (11.0-16.0); White Blood Count 6.2 X10*3/uL (4.8-10.8)
[2024-04-26 11:47] LABS: Appearance Urine Clear; Color Urine Yellow; Glucose Urine UA Negative (Negative); Leukocyte Esterase Urine Trace (Negative); Nitrite Urine Negative (Negative); PH 5.5 (5.0-9.0); Specific Gravity - Urine 1.025 (1.005-1.025); UMIC TRIGGER UACC YES; Urine Blood Negative (Negative); Urine Ketones 15 mg/dL (Negative); Urine Protein 100 (2+) mg/dL (Neg-Trace)
[2024-04-26 11:53] LABS: Bacteria Urine None Seen (None Seen); Hyaline Casts Urine 0-2 /LPF (0-2); RBC Urine 0-2 /HPF (0-2); Squamous Epithelial Cell Urine 0-2 /HPF (0-2); WBC Urine 0-5 /HPF (0-5)
[2024-04-26 11:55] LABS: Alanine Aminotransferase 18 U/L (0-40); Albumin Level 4.8 g/dL (3.5-5.0); Alkaline Phosphatase 37 U/L (39-117); Anion Gap 14 (12-20); Aspartate Amino Transferase 21 U/L (5-37); Bilirubin Total 1.1 mg/dL (0.0-1.0); Blood Urea Nitrogen 22 mg/dL (9-16); Calcium 10.8 mg/dL (8.4-10.2); Carbon Dioxide 24 mmol/L (22-29); Chloride 106 mmol/L (96-108); Cholesterol 162 mg/dL (<200); Estimated Glomerular Filt Rate > 60; Glucose Fasting 152 mg/dL (60-99); HDL Cholesterol 51 mg/dL (>40); LDL Cholesterol Calculated 82 mg/dL (<100); Potassium 4.2 mmol/L (3.3-5.1); Sodium 140 mmol/L (135-145); Total Protein 7.9 g/dL (6.5-8.0); Triglycerides 147 mg/dL (<150)
[2024-04-26 12:12] LABS: TSH reflex Free T4 0.98 uIU/mL (0.32-4.0)
[2024-04-26 13:19] LABS: Parathyroid Hormone Intact 45.1 pg/mL (8.7-77.1)
[2024-04-30 10:38] LABS: Calcium, Ionized 5.6 mg/dL (4.7-5.5)
== END 2024-04-26 09:28 | disposition home or self-care (01) ==
LOC: HO.HMGCLDS 09:27
PROVIDERS: PCP Nurse Practitioner Family; Visit Provider Nurse Practitioner Family
DX: E11.9 Type 2 diabetes mellitus without complications (principal); E83.52 Hypercalcemia
CPT/HCPCS: 36415; 80053; 80061; 81001; 82330; 83970; 84443; 85025

== ENCOUNTER 2024-04-28 12:15 | Outpatient (AMB) | payer BC, SELFPAY ==
--- NOTE | 2024-04-28 12:33 | A.OFFPC_ITS ---
Vital Signs 04/28/24 12:34 Height 5 ft 11 in Weight 189 lb BMI 26.4 BP 122/78 Blood Pressure Location Lt brachial Position Sitting Pulse 76 Pulse Source Pulse Oximeter Pulse Oximetry (%) 97 Oxygen Delivery Method Room Air Intake Visit Reasons: 4M F/U Intake Note: pt is here for 4 month follow up Allergies No Known Allergies Allergy (Verified 04/28/24 14:40) Medication List - Last Reconc[facility]28/24 [facility] amlodipine 10 mg PO DAILY aspirin (Edgar Low Dose Aspirin) 81 mg PO DAILY atorvastatin 40 mg PO DAILY clonidine HCl 0.2 mg PO BEDTIME glipizide ER 5 mg PO DAILY hydralazine 25 mg PO BID hydrochlorothiazide 25 mg PO DAILY lisinopril 40 mg PO DAILY metformin 1,000 mg PO BID propranolol ER 120 mg PO DAILY Tobacco use date assessed: 12/27/23 Fall risk assessment: No Falls in past year Last assessed Fall Risk: 04/28/24 Dental Screening Dental Screen Date: 12/27/23 HPI 4M F/U HPI Details Pt is a diabetic, on an ANITHA and a statin. A1C in office today is 5.9. Microalbumin is up to date. Denies polyuria, polydipsia, and neuropathy. Pt denies any signs and symptoms of hypoglycemia and does know how to correct it. Seeing nephrology as well. Pt has been working on his [facility] Medical History Colonoscopy refused Social History Housing: House Patient Tobacco Use Status: Former Tobacco user e-Cigarette/Vaping Use: Never Used Second Hand Smoke Exposure: No Current occupational status: employed Current occupation: [id number] Current occupational exposures/hazards: No Cognitive needs: No Hearing needs: No Vision needs: No Questionnaire PHQ-9 Over the last 2 weeks, how often have you been bothered by any of the following problems? 1. Little interest or pleasure in doing things: not at all 2. Feeling down, depressed, or hopeless: not at all 3. Trouble falling or staying asleep, or sleeping too much: not at all 4. Feeling tired or having little energy: not at all 5. Poor appetite or overeating: not at all 6. Feeling bad about yourself - or that you are a failure or have let yourself or your family down: not at all 7. Trouble concentrating on things, such as reading the newspaper or watching television: not at all 8. Moving or speaking so slowly that other people could have noticed. Or the opposite - being so fidgety or restless that you have been moving around a lot more than usual: not at all 9. Thoughts that you would be better off or of hurting yourself in some way: not at all Total score: 0 Depression Screening Interpretation: Negative Depression Screening Done: Yes 98535 - PHQ-9 Billing: Yes Source: Developed by Drs. Joesph Gray, aLxmi Young, Teddy Reyes and colleagues, with an educational ning from [employer]. Thrive Questionnaire Date Thrive assessed: 12/27/23 I am a: Patient What is your living situation today?: I have a steady place to live Within the past 12 months, did the food you bought not last and you didn't have the money to get more?: Never true Within the past 12 months, did you worry whether your food would run out before you got money to buy more?: Never true Do you have trouble paying for medicines?: No Do you have trouble getting transportation to medical appointments?: No Do you have trouble paying your heating and electricity bill?: No Do you have trouble taking care of your child, family member or friend?: No Do you have trouble with day-to-day activities such as bathing, preparing meals, shopping, managing finances, etc.?: No Are you interested in more education?: I choose not to answer this question Please select the resources that you would like help with: None Currently or been in a relationship where the following occur: No concerns reported THRIVE Score: 0 AUDIT C Alcohol Use Questionnaire (AUDIT-C) 1. How often do you have a drink containing alcohol?: 4 or more times a week 2. How many drinks containing alcohol do you have on a typical day when you are drinking?: 1 or 2 3. How often do you have six or more drinks on one occasion?: Monthly Total Score: 6 Score Reviewed/Action Taken: Yes ROBYN-7 AMB Questionnaire ROBYN-7 Date ROBYN - 7 assessed: 04/28/24 Feeling nervous, anxious, or on edge: 0 = Not at all Not being able to stop or control worryin = Not at all Worrying too much about different things: 0 = Not at all Trouble relaxin = Not at all Being so restless that it is hard to sit still: 0 = Not at all Becoming easily annoyed or irritable: 0 = Not at all Feeling afraid as if something awful might happen: 0 = Not at all Total ROBYN-7 score (0-4 normal; 5-9 mild; 10-14 moderate; 15-21 severe): 0 Source: Developed by Drs. Joesph Gray, Laxmi Young, Teddy Reyes and colleagues, with an educational ning from [employer]. ROBYN-7 Assessment Billing ROBYN-7 Assessment Tool: ROBYN-7 Assessment 62996 Review of Systems Const Reports as per HPI Physical exam (Primary Care) Vital Signs: Last Vital Signs Pulse 76 04/28/24 12:34 BP 122/78 04/28/24 12:34 Pulse Ox 97 04/28/24 12:34 Oxygen Delivery Method Room Air 04/28/24 12:34 BMI result Body Mass Index 26.4 Tobacco/Smoking Status: Tobacco use Status Tobacco use date assessed 12/27/23 04/28/24 12:34 Patient Tobacco Use Status Former Tobacco user 04/28/24 12:34 e-Cigarette/Vaping Use Never Used 04/28/24 12:34 PHQ-9: PHQ-9 Score PHQ-9: Total score 0 04/28/24 12:53 Depression Screening Interpretation: Negative Thrive Assessment: Date of Thrive Assessment Date Thrive assessed 12/27/23 04/28/24 12:34 Currently or been in a relationship where the following occur: No concerns reported Const General: cooperative Orientation/consciousness: patient oriented x3 Resp Effort & Inspection: normal respiratory effort Auscultation: clear to auscultation bilaterally Cardio Rate: regular rate Rhythm: regular rhythm Heart sounds: S1 normal heart sound present, S2 normal heart sound present and Murmur heart sound present systolic Neuro General: patient oriented x3 Extrem Other: bilat feet: + sensation with use of monofilament, feet intact Psych Appearance: grossly normal Mental Status: mental status grossly normal Speech and movement: Normal speech and movement present Affect: normal affect Attitude: cooperative Thought process: Normal thought process present Thought content: Normal thought content present Insight: Good insight present (Psych) Judgement: Good judgement present (Psych) Results AMB Hemoglobin A1c AMB Hemoglobin A1c 5.9 % Last Edit by Nael Junior CMA on 04/28/24 13: 11 Results Reviewed Results Reviewed: Laboratory Last Values Hgb A1c (Clinic) 5.9 % (4.0-6.0) 04/28/24 12:48 Coding Level of Care Code Est Pt Level 3 (26330) Diagnoses Systolic murmur R01.1 Additional Codes ROBYN-7 Assessment Billing - ROBYN-7 Assessment Tool: ROBYN-7 Assessment 63093 ([id number]) Assessment & Plan Assessment & Plan (1) Systolic murmur: Code(s): R01.1 - Cardiac murmur, unspecified Category: Medical Plan The patient agreed to the use of a director medical surgical for this encounter. Scribed for RITESH Espinoza by Mellisa Moctezuma director medical surgical, on 04/28/2024 at 12:50 EST. Orders: Orders AMB Hemoglobin A1c Today Z13.9 - Encounter for screening, unspecified CA echo transthoracic complete Today R01.1 - Cardiac murmur, unspecified
[2024-04-28 12:34] VITALS: BP 122/78; PULSE 76; O2SAT 97; BMI 26.4
== END 2024-04-28 13:07 | disposition home or self-care (01) ==
PROVIDERS: PCP Nurse Practitioner Family; Visit Provider Nurse Practitioner Family
DX: R01.1 Cardiac murmur, unspecified (principal); Z13.9 Encounter for screening, unspecified

== ENCOUNTER → 2024-04-28 12:15 | Outpatient (BNVA) | payer BC, SELFPAY | PROVIDERS: PCP Nurse Practitioner Family; Visit Provider Nurse Practitioner Family | DX: R01.1 Cardiac murmur, unspecified (principal); E11.9 Type 2 diabetes mellitus without complications; Z79.899 Other long term (current) drug therapy | CPT/HCPCS: 83036; 96127 ==

== ENCOUNTER 2024-10-04 11:38 | Outpatient (REF) | payer BC, SELFPAY ==
[2024-10-04 13:47] LABS: Anion Gap 15 (12-20); Blood Urea Nitrogen 24 mg/dL (9-16); Carbon Dioxide 23 mmol/L (22-29); Chloride 107 mmol/L (96-108); Estimated Glomerular Filt Rate > 60; Potassium 4.4 mmol/L (3.3-5.1); Sodium 141 mmol/L (135-145)
[2024-10-04 14:46] LABS: Creatinine Urine 242.92 mg/dL; Protein/Creatinine Ratio, Ur 0.51 (<0.2); Total Protein Urine Random 125 mg/dL (<12)
== END 2024-10-04 11:39 | disposition home or self-care (01) ==
LOC: HO.HMGCLDS 11:38
PROVIDERS: PCP Nurse Practitioner Family; Visit Provider Internal Medicine Nephrology
DX: R80.8 Other proteinuria (principal); I10 Essential (primary) hypertension
CPT/HCPCS: 36415; 80051; 82565; 82570; 84156; 84520

== ENCOUNTER 2024-10-10 14:00 | Outpatient (AMB) | payer BC, SELFPAY ==
--- NOTE | 2024-10-10 14:05 | HO.NEPHOV_ITS ---
Vital Signs 10/10/24 14:06 Height 5 ft 11 in Weight 193 lb 4 oz BMI 26.9 BP 140/80 H Blood Pressure Location Lt brachial Position Sitting Pulse 61 Pulse Source Pulse Oximeter Pulse Oximetry (%) 96 Oxygen Delivery Method Room Air Intake Visit Reasons: Proteinuria-Conf [employer] Contact Printer Required: No Accompanied by: Self / Same As Patient Allergies No Known Allergies Allergy (Verified 10/10/24 14:06) HPI Comments Details: I had the privilege of seeing Prudence in follow up for proteinuria. He is diabetic and hypertensive. His blood pressure control was suboptimal needing increase in dose and number of medications. Recently he has been started on clonidine and ever since his blood pressure has been at goal. His diabetes was not under control with a hemoglobin A1c of 9.2 which he worked hard on and is currently under 7. He denies retinopathy, neuropathy but has nephropathy. He does not have any coronary artery disease, congestive heart failure, CVA, renal artery stenosis, peripheral arterial disease, skin rashes, carotid stenosis, photosensitivity, joint swellings, epistaxis, hematuria, renal stones. His proteinuria has normailized. He denies taking excessive nonsteroidal anti- inflammatories. He claims to be compliant with his medications. [facility] Medical History Colonoscopy refused Social History Housing: House Patient Tobacco Use Status: Former Tobacco user e-Cigarette/Vaping Use: Never Used Second Hand Smoke Exposure: No Current occupational status: employed Current occupation: [id number] Current occupational exposures/hazards: No Cognitive needs: No Hearing needs: No Vision needs: No Review of Systems Const All systems reviewed & are unremarkable except as noted in HPI and below Physical Exam Const General: comfortable and no acute distress Orientation/consciousness: patient oriented x3 HEENT Head: Yes normocephalic Mouth: Normal oral and palatal mucosa present Eyes EOM: EOMs intact bilaterally Neck Neck: Yes supple Resp Auscultation: clear to auscultation bilaterally Cardio Jugular venous distension: no JVD Rate: regular rate GI Palpation (GI): Soft to palpation Auscultation: normal bowel sounds General: Yes no CVA tenderness Back/Spine/Pelvis Back: no CVA tenderness Skin General skin exam: no rashes or lesions noted Neuro General: patient oriented x3 and moves all extremities Extrem General: Yes no pedal edema Results Reviewed Nephrology Results: Hgb 14.8 g/dl (14.0-18.0) 04/26/24 WBC 6.2 X10*3/uL (4.8-10.8) 04/26/24 Plt Count 187 X10*3/uL (160-400) 04/26/24 Sodium 141 mmol/L (135-145) 10/04/24 Potassium 4.4 mmol/L (3.3-5.1) 10/04/24 Chloride 107 mmol/L (96-108) 10/04/24 Carbon Dioxide 23 mmol/L (22-29) 10/04/24 BUN 24 mg/dL (9-16) H 10/04/24 Creatinine 0.68 mg/dL (0.5-1.4) 10/04/24 Urine Creatinine 242.92 mg/dL 10/04/24 Protein/Creatinin Ratio 0.51 (<0.2) H 10/04/24 Assessment & Plan Assessment & Plan (1) Proteinuria: Code(s): R80.9 - Proteinuria, unspecified Category: Medical Qualifiers: Proteinuria type: other Qualified Code(s): R80.8 - Other proteinuria (2) Serum calcium elevated: Code(s): E83.52 - Hypercalcemia Category: Medical (3) HTN (hypertension): Code(s): I10 - Essential (primary) hypertension Category: Medical Qualifiers: Hypertension type: primary hypertension Qualified Code(s): I10 - Essential (primary) hypertension Plan 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 His blood pressure is currently at goal. His hemoglobin A1c is under 7. He does not have any retinopathy or neuropathy. He has no family history of Fabry's disease. He has no coronary artery disease or symptoms suggestive of small fiber neuropathy either. He should avoid nonsteroidal anti-inflammatories and maintain good hydration. His hypercalcemia most likely is due to HCTZ- work up ordered. I did not make any medication changes today. Patient prefers not to have renal biopsy if he can avoid ( doesnt like needles) Answered all his questions. Follow-up appointment given Orders: Orders Immunofixation Pnl, Serum 3 Months E83.52 - Hypercalcemia, I10 - Essential (primary) hypertension, R80.8 - Other proteinuria Vitamin D 25-OH Total 3 Months E83.52 - Hypercalcemia, I10 - Essential (primary) hypertension, R80.8 - Other proteinuria Parathyroid Hormone Intact 3 Months E83.52 - Hypercalcemia, I10 - Essential (primary) hypertension, R80.8 - Other proteinuria Calcium 3 Months E83.52 - Hypercalcemia, I10 - Essential (primary) hypertension, R80.8 - Other proteinuria Electrolytes 3 Months E83.52 - Hypercalcemia, I10 - Essential (primary) hypertension, R80.8 - Other proteinuria Blood Urea Nitrogen 3 Months E83.52 - Hypercalcemia, I10 - Essential (primary) hypertension, R80.8 - Other proteinuria Immunofixation, Random Urine 3 Months R80.8 - Other proteinuria Vitamin D 1,25 dihydroxy 3 Months E83.52 - Hypercalcemia, I10 - Essential (primary) hypertension, R80.8 - Other proteinuria Creatinine 3 Months E83.52 - Hypercalcemia, I10 - Essential (primary) hypertension, R80.8 - Other proteinuria Protein Creatinine Ratio, Ur 3 Months R80.8 - Other proteinuria Coding Level of Care Code Est Pt Level 4 (36888) Diagnoses Other proteinuria R80.8 Proteinuria type: other Serum calcium elevated E83.52 Primary hypertension I10 Hypertension type: primary hypertension
[2024-10-10 14:06] VITALS: BP 140/80; PULSE 61; O2SAT 96; BMI 26.9
--- OUTSIDE RECORDS SUMMARY | 2024-10-10 16:22 | XMS_ITS | Clinical Summary ---
Author Organization [facility], Address [address] [place] [address] [place] [address] Phone Care Team Providers Care Dorr Operator Name Role Phone Prosper Mckeon NP Primary Care Provider [phone] Social History Tobacco Use Types Packs/Day Years Used Date Smoking Tobacco: Never Assessed Sex and Gender Information Value Date Recorded Sex Assigned at Not on file Legal Sex Male 4:21 PM EDT Gender Identity Not on file Sexual Orientation Not on file Plan of Treatment Health Maintenance Due Date Last Done Comments Colorectal Cancer Screening: Annual FOBT 2006 Colorectal Cancer Screening: Colonoscopy 2006 Colorectal Cancer Screening: Sigmoidoscopy 2006 Pneumococcal Vaccine: 65+ Ye ars (1 of 1 - PCV) 2022 Influenza Vaccine (#1) 2024 Hepatitis B Vaccine Aged Out No longe r eligible based on patient's age to complete this topic Insurance [employer] OPEN ACCESS ([id number]) Care Teams Dorr Operator Relationship Specialty Start Date End Date Prosper Mckeon NP [facility] [place] [address] PCP - General Nurse Practitioner 10/15/20
== END 2024-10-10 14:18 | disposition home or self-care (01) ==
LOC: HO.HKA 14:01
PROVIDERS: PCP Nurse Practitioner Family; Visit Provider Internal Medicine Nephrology
DX: R80.8 Other proteinuria (principal); E83.52 Hypercalcemia; I10 Essential (primary) hypertension
CPT/HCPCS: 99214

== ENCOUNTER → 2024-10-10 14:00 | Outpatient (BNVA) | payer BC, SELFPAY | PROVIDERS: PCP Nurse Practitioner Family; Visit Provider Internal Medicine Nephrology ==

== ENCOUNTER 2025-02-05 11:37 | Outpatient (REF) | payer BC, SELFPAY ==
--- OUTSIDE RECORDS SUMMARY | 2025-02-05 12:29 | XMS_ITS | Clinical Summary ---
Author Organization [facility], Address [address] [place] [address] [place] [address] Phone Care Team Providers Care Geographic Information Systems Analyst Name Role Phone Prosper Mckeon NP Primary Care Provider [phone] Social History Tobacco Use Types Packs/Day Years [...] Colorectal Cancer Screening: Sigmoidoscopy 2006 Pneumococcal Vaccine: 50+ Ye ars (1 of 1 - PCV) 2007 Influenza Vaccine (#1) 2025 Hepatitis B Vaccine Aged Out No longe r eligible based on patient's age to complete this topic Insurance [employer] Open Access ([id number]) Care Teams Geographic Information Systems Analyst Relationship Specialty Start Date End Date Prosper Mckeon NP [facility] [place] [address] PCP - General Nurse Practitioner 10/15/20
[2025-02-05 13:34] LABS: Parathyroid Hormone Intact 49.8 pg/mL (8.7-77.1)
[2025-02-05 13:41] LABS: Anion Gap 15 (12-20); Blood Urea Nitrogen 19 mg/dL (9-16); Calcium 9.8 mg/dL (8.4-10.2); Carbon Dioxide 24 mmol/L (22-29); Chloride 105 mmol/L (96-108); Estimated Glomerular Filt Rate > 60; Potassium 4.4 mmol/L (3.3-5.1); Sodium 140 mmol/L (135-145)
[2025-02-05 13:48] LABS: Protein/Creatinine Ratio, Ur 0.71 (<0.2); Total Protein Urine Random 75 mg/dL (<12)
[2025-02-09 16:19] LABS: VITAMIN D (1,25 OH) D3 34 pg/mL; Vit D (1,25-Dihydroxy) Total 34 pg/mL (18-72); Vitamin D (1,25 OH) D2 <8 pg/mL
== END 2025-02-05 11:38 | disposition home or self-care (01) ==
LOC: HO.HMGCLDS 11:37
PROVIDERS: PCP Nurse Practitioner Family; Visit Provider Internal Medicine Nephrology
DX: R80.8 Other proteinuria (principal); E83.52 Hypercalcemia; I10 Essential (primary) hypertension
CPT/HCPCS: 80051; 82306; 82310; 82565; 82570; 82652; 82784; 83970; 84156; 84520; 86334; 86335

== ENCOUNTER 2025-02-06 14:18 | Outpatient (AMB) | payer BC, SELFPAY ==
--- NOTE | 2025-02-06 14:20 | HO.NEPHOV ---
Vital Signs 02/06/25 14:21 Height 5 ft 11 in Weight 201 lb 2 oz BMI 28.0 BP 122/70 Blood Pressure Location Lt brachial Position Sitting Pulse 70 Pulse Source Pulse Oximeter Pulse Oximetry (%) 96 Oxygen Delivery Method Room Air Intake Visit Reasons: 4 MO FU/ LVM Electronic Warfare Specialist Required: No Accompanied by: Self / Same As Patient Allergies No Known Allergies Allergy (Verified 02/06/25 14:21) HPI Comments Details: I had the privilege of seeing Prudence in follow up for proteinuria. He is diabetic and hypertensive. His blood pressure control is optimal. His diabetes was not under control with a hemoglobin A1c of 9.2 which he worked hard on and is currently under 7. He denies retinopathy, neuropathy but has nephropathy. He does not have any coronary artery disease, congestive heart failure, CVA, renal artery stenosis, peripheral arterial disease, skin rashes, carotid stenosis, photosensitivity, joint swellings, epistaxis, hematuria, renal stones. His proteinuria has normailized. He denies taking excessive nonsteroidal anti-inflammatories. He claims to be compliant with his medications. [facility] Medical History Colonoscopy refused Social History Housing: House Patient Tobacco Use Status: Former Tobacco user e-Cigarette/Vaping Use: Never Used Second Hand Smoke Exposure: No Current occupational status: employed Current occupation: [id number] Current occupational exposures/hazards: No Cognitive needs: No Hearing needs: No Vision needs: No Review of Systems Const All systems reviewed & are unremarkable except as noted in HPI and below Physical Exam Vital Signs: Last Vital Signs Pulse 70 02/06/25 14:21 BP 122/70 02/06/25 14:21 Pulse Ox 96 02/06/25 14:21 Oxygen Delivery Method Room Air 02/06/25 14:21 BMI result Body Mass Index 28.0 Const General: comfortable and no acute distress Orientation/consciousness: patient oriented x3 HEENT Head: Yes normocephalic Mouth: Normal oral and palatal mucosa present Eyes EOM: EOMs intact bilaterally Neck Neck: Yes supple Resp Auscultation: clear to auscultation bilaterally Cardio Jugular venous distension: no JVD Rate: regular rate GI Palpation (GI): Soft to palpation Auscultation: normal bowel sounds General: Yes no CVA tenderness Back/Spine/Pelvis Back: no CVA tenderness Skin General skin exam: no rashes or lesions noted Neuro General: patient oriented x3 and moves all extremities Extrem General: Yes no pedal edema Results Reviewed Nephrology Results: Hgb, (14.0-18.0) 14.8 g/dl 04/26/24 WBC, (4.8-10.8) 6.2 X10*3/uL 04/26/24 Plt Count, (160-400) 187 X10*3/uL 04/26/24 Sodium, (135-145) 140 mmol/L 02/05/25 Potassium, (3.3-5.1) 4.4 mmol/L 02/05/25 Chloride, (96-108) 105 mmol/L 02/05/25 Carbon Dioxide, (22-29) 24 mmol/L 02/05/25 BUN, (9-16) 19 mg/dL H 02/05/25 Creatinine, (0.5-1.4) 0.84 mg/dL 02/05/25 Calcium, (8.4-10.2) 9.8 mg/dL Δ 02/05/25 PTH Intact, (8.7-77.1) 49.8 pg/mL 02/05/25 Urine Protein, (Neg-Trace) 100 (2+) mg/dL H 04/26/24 Urine Creatinine 106.32 mg/dL 02/05/25 Protein/Creatinin Ratio, (<0.2) 0.71 H 02/05/25 Assessment & Plan Assessment & Plan (1) HTN (hypertension): Code(s): I10 - Essential (primary) hypertension Category: Medical Qualifiers: Hypertension type: primary hypertension Qualified Code(s): I10 - Essential (primary) hypertension (2) Proteinuria: Code(s): R80.9 - Proteinuria, unspecified Category: Medical Qualifiers: Proteinuria type: other Qualified Code(s): R80.8 - Other proteinuria Plan 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 His blood pressure is currently at goal. His hemoglobin A1c is under 7. He does not have any retinopathy or neuropathy. He has no family history of Fabry's disease. He has no coronary artery disease or symptoms suggestive of small fiber neuropathy either. He should avoid nonsteroidal anti-inflammatories and maintain good hydration. His hypercalcemia most likely was due to HCTZ- work up ordered- results pending. He is a candidate for SGLT2i. I did not make any medication changes today. Patient prefers not to have renal biopsy if he can avoid ( doesnt like needles) Answered all his questions. Follow-up appointment given Orders: Orders Protein Creatinine Ratio, Ur 6 Months I10 - Essential (primary) hypertension, R80.8 - Other proteinuria Electrolytes 6 Months I10 - Essential (primary) hypertension, R80.8 - Other proteinuria Creatinine 6 Months I10 - Essential (primary) hypertension, R80.8 - Other proteinuria Blood Urea Nitrogen 6 Months I10 - Essential (primary) hypertension, R80.8 - Other proteinuria Coding Level of Care Code Est Pt Level 4 (64595) Diagnoses Primary hypertension I10 Hypertension type: primary hypertension Other proteinuria R80.8 Proteinuria type: other
--- OUTSIDE RECORDS SUMMARY | 2025-02-06 14:20 | XMS_ITS | Clinical Summary ---
Author Organization [facility], Address [address] [place] [address] [place] [address] Phone Care Team Providers Care Telephone Triage Nurse Name Role Phone Prosper Mckeon NP Primary Care Provider [phone] Social History Tobacco Use Types Packs/Day Years [...] patient's age to complete this topic Insurance [employer] Open Access ([id number]) Care Teams Telephone Triage Nurse Relationship Specialty Start Date End Date Prosper Mckeon NP [facility] [address] PCP - General Nurse Practitioner 10/15/20
[2025-02-06 14:21] VITALS: BP 122/70; PULSE 70; O2SAT 96; BMI 28.0
== END 2025-02-06 14:32 | disposition home or self-care (01) ==
LOC: HO.HKA 14:19
PROVIDERS: PCP Nurse Practitioner Family; Visit Provider Internal Medicine Nephrology
DX: I10 Essential (primary) hypertension (principal); R80.8 Other proteinuria
CPT/HCPCS: 99214

== ENCOUNTER 2025-05-28 10:51 | Outpatient (AMB) | payer BC, SELFPAY ==
[2025-05-28 10:40] VITALS: BP 120/62; PULSE 68; RESP 14; TEMP 37.2; O2SAT 99; BMI 27.2
--- NOTE | 2025-05-28 10:40 | MHC.PC.OV ---
Vital Signs 05/28/25 10:40 Height 5 ft 11 in Weight 195 lb BMI 27.2 BP 120/62 Blood Pressure Location Lt brachial Position Sitting Respiration 14 Pulse 68 Pulse Source Pulse Oximeter Temp 98.9 F Temp Source Oral Pulse Oximetry (%) 99 Oxygen Delivery Method Room Air Intake Visit Reasons: Annual PE/6 month follow up - see comments Flight Dispatcher Required: No Accompanied by: Self / Same As Patient Allergies No Known Allergies Allergy (Verified 05/28/25 10:55) Medication List - Last Reconciled 05/28/25 by ADAM JoseP- amlodipine 10 mg PO DAILY aspirin (Edgar Low Dose Aspirin) 81 mg PO DAILY atorvastatin 40 mg PO DAILY clonidine HCl 0.2 mg PO BEDTIME glipizide ER 5 mg PO DAILY hydralazine 25 mg PO BID hydrochlorothiazide 25 mg PO DAILY lisinopril 40 mg PO DAILY metformin 1,000 mg PO BID propranolol ER 120 mg PO DAILY Tobacco use date assessed: 05/28/25 Fall risk assessment: No Falls in past year Last assessed Fall Risk: 05/28/25 Dental Screening Dental Screen Date: 05/28/25 Did you have a dental visit in the last 12 months?: Yes Did you have a dental problem in the last 6 months where you did not have access to dental care?: No Was dental information given to patient?: Patient has dentist HPI Annual PE/6 month follow up - see comments HPI Details History of Present Illness The patient is a 69-year-old male presenting for a physical exam and diabetes management. He has a history of diabetes, and a recent eye exam showed no diabetic retinopathy. The patient denies any symptoms of neuropathy. He has a partially missing toenail on his right great toe, which he reportedly cut off himself. Regarding preventative care, the patient is not interested in any form of colon cancer screening, including Cologuard or colonoscopy. His hemoglobin A1c was 6.5% today. Health Maintenance - Diabetic eye exam: Up to date, with a recent report noting no diabetic retinopathy. - Colon cancer screening: Patient is not interested in Cologuard or colonoscopy at this time. - Diabetes management: Hemoglobin A1c today was 6.5%. Social History Review of Systems - Neurological: Denies neuropathies. -denies any si, hi, cp, sob, blood in stool, constipation, diarrhea, urinary issues, si or hi Physical Exam General: Cooperative, healthy appearing, comfortable, no acute distress and well developed Orientation: Patient oriented x3 Limitations: No limitations Head: Normal to inspection Ears: Hearing grossly normal bilaterally Nose: Normal external nose present Face and sinus: Normal facial exam Eyes: Appearance normal, both eyes and all related structures. Neck: Normal visual inspection and Yes full ROM Respiratory: Normal respiratory effort and able to speak in complete sentences. Clear to auscultation bilaterally Cardiovascular: Regular rate and rhythm. Normal S1 and S2. Systolic murmur noted GI: Normal to inspection. Soft to palpation and nontender Skin: No rashes or lesions noted. Partially missing toenail on right big toe Neuro: Patient oriented x3. Denies any neuropathies Extremities: Normal to inspection. Use of monofilament feet (+ sensation), feet were intact, missing half of right big toenail Results - Labs: Hemoglobin A1c was 6.5%. - Tests and Diagnostics: Recent eye exam showed no diabetic retinopathy. Plan Patient was informed and verbally consented to the use of an ambient scribe for clinic note documentation during this visit. 1. Diabetes Mellitus The patient's hemoglobin A1c of 6.5% is at goal, and he has no evidence of diabetic retinopathy on his up-to-date eye exam. He denies neuropathies, and a monofilament test showed intact sensation in his feet. 2. Annual Physical Exam Physical exam findings are notable for a systolic murmur and a partially missing toenail on the right great toe. 3. Patient Declines Colon Cancer Screening The patient is not interested in undergoing colon cancer screening with either Cologuard or colonoscopy at this time. Discussion Notes I reviewed the patient's recent eye exam report which noted no diabetic retinopathy. We also discussed that his A1c today was 6.5%. The patient voiced that he is not interested in any colon screening, including Cologuard or colonoscopy. Patient Instructions [facility] Medical History Colonoscopy refused Social History Housing: House Patient Tobacco Use Status: Former Tobacco user e-Cigarette/Vaping Use: Never Used Second Hand Smoke Exposure: No Current occupational status: employed Current occupation: [id number] Current occupational exposures/hazards: No Cognitive needs: No Hearing needs: No Vision needs: No Questionnaire Thrive Questionnaire Date Thrive assessed: 04/28/24 ROBYN-7 AMB Questionnaire ROBYN-7 Date ROBYN - 7 assessed: 04/28/24 Source: Developed by Drs. Joesph Gray, Laxmi Young, Teddy Reyes and colleagues, with an educational ning from [employer]. Physical exam (Primary Care) Vital Signs: Last Vital Signs Temp 98.9 F 05/28/25 10:40 Pulse 68 05/28/25 10:40 Resp 14 05/28/25 10:40 BP 120/62 05/28/25 10:40 Pulse Ox 99 05/28/25 10:40 Oxygen Delivery Method Room Air 05/28/25 10:40 BMI result Body Mass Index 27.2 Tobacco/Smoking Status: Tobacco use Status Tobacco use date assessed 05/28/25 05/28/25 11:00 Patient Tobacco Use Status Former Tobacco user 05/28/25 10:40 e-Cigarette/Vaping Use Never Used 05/28/25 10:40 Thrive Assessment: Date of Thrive Assessment Date Thrive assessed 05/28/25 05/28/25 10:51 Results AMB Hemoglobin A1c AMB Hemoglobin A1c 6.5 % Last Edit by Marilee Lindquist MA on 05/28/25 11:06 Results Reviewed Results Reviewed: Laboratory Last Values Hgb A1c (Clinic) 6.5 % (4.0-6.0) H 05/28/25 11:00 Coding Level of Care Code Est Pt Level 3 (23720) Est Pt Prev Care >65y(61673) Diagnoses Diabetes E11.9 Physical exam Z00.00 Systolic murmur R01.1 Screening PSA (prostate specific antigen) Z12.5 Assessment & Plan Assessment & Plan (1) Diabetes: Code(s): E11.9 - Type 2 diabetes mellitus without complications Category: Medical (2) Physical exam: Code(s): Z00.00 - Encounter for general adult medical examination without abnormal findings Category: Medical (3) Systolic murmur: Code(s): R01.1 - Cardiac murmur, unspecified Category: Medical (4) Screening PSA (prostate specific antigen): Code(s): Z12.5 - Encounter for screening for malignant neoplasm of prostate Category: Medical Plan . Orders: Orders AMB Hemoglobin A1c Today E11.9 - Type 2 diabetes mellitus without complications Complete Blood Count Auto Diff Today E11.9 - Type 2 diabetes mellitus without complications, Z00.00 - Encounter for general adult medical examination without abnormal findings Comprehensive [place]. Panel Fast Today E11.9 - Type 2 diabetes mellitus without complications, Z00.00 - Encounter for general adult medical examination without abnormal findings TSH reflex Free T4 Today E11.9 - Type 2 diabetes mellitus without complications, Z00.00 - Encounter for general adult medical examination without abnormal findings UA CC w/rflx Micro + Cult Today E11.9 - Type 2 diabetes mellitus without complications, Z00.00 - Encounter for general adult medical examination without abnormal findings Microalbumin, Random (w Creat) Today E11.9 - Type 2 diabetes mellitus without complications CA echo transthoracic complete Today R01.1 - Cardiac murmur, unspecified Prostate Specific Antigen Scr Today Z12.5 - Encounter for screening for malignant neoplasm of prostate Lipid Panel Today E11.9 - Type 2 diabetes mellitus without complications, Z00.00 - Encounter for general adult medical examination without abnormal findings
== END 2025-05-28 11:33 | disposition home or self-care (01) ==
LOC: HO.HMCC 10:51
PROVIDERS: PCP Nurse Practitioner Family; Visit Provider Nurse Practitioner Family
DX: Z00.00 Encounter for general adult medical examination without abnormal findings (principal); E11.9 Type 2 diabetes mellitus without complications; R01.1 Cardiac murmur, unspecified; Z12.5 Encounter for screening for malignant neoplasm of prostate

== ENCOUNTER → 2025-05-28 10:51 | Outpatient (BNVA) | payer BC, SELFPAY | PROVIDERS: PCP Nurse Practitioner Family; Visit Provider Nurse Practitioner Family | DX: Z00.00 Encounter for general adult medical examination without abnormal findings (principal); E11.9 Type 2 diabetes mellitus without complications; R01.1 Cardiac murmur, unspecified | CPT/HCPCS: 83036 ==